=== PATIENT | male | born 1980 | race Hispanic/Latino ===

== ENCOUNTER 2021-03-07 12:56 | Outpatient (RCR) | payer BC | END 2021-03-10 | LOC: PT 12:56 | PROVIDERS: ATTEND Neurological Surgery | DX: M51.16 Intervertebral disc disorders with radiculopathy, lumbar region (principal) ==

== ENCOUNTER 2021-03-14 13:00 | Outpatient (RCR) | payer BC | END 2021-04-09 | LOC: PT 13:00 | PROVIDERS: ATTEND Neurological Surgery | DX: M51.16 Intervertebral disc disorders with radiculopathy, lumbar region (principal) ==

== ENCOUNTER 2021-08-26 17:00 | Outpatient (RCR) | payer BC | END 2021-09-09 | LOC: PT 17:00 | PROVIDERS: ATTEND Neurological Surgery | DX: M54.16 Radiculopathy, lumbar region (principal) ==